=== PATIENT | female | born 2000 | race Caucasian/White ===

== ENCOUNTER 2024-04-23 08:52 | Outpatient (AMB) | payer OTHER, SELFPAY ==
--- NOTE | 2024-04-23 08:53 | AM.OFFWIN_ITS ---
Intake Vital Signs 04/23/24 08:54 Height 5 ft 4.5 in Weight 152 lb BMI 25.7 BP 102/68 Blood Pressure Location Rt brachial Position Right Lateral Pulse 70 Pulse Source Pulse Oximeter Temp 98.4 F Temp Source Oral Pulse Oximetry (%) 98 Oxygen Delivery Method Room Air Intake Visit Reasons: frequent urination Intake Note: pt c/o urinary frequency, chills, bladder pain. Started Patient Tobacco Use Status: Never used Tobacco Allergies No Known Allergies Allergy (Verified 04/23/24 08:53) Do you need a note to return to daycare/school/sports/work: No HPI frequent urination HPI Details This note is constructed using voice recognition software. While every effort has been made to ensure accuracy, french instructor errors may have been included. The patient is a 23 year old female who presents to the clinic today with concern for UTI. 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 The symptoms did start on and she did start increasing her hydration to try to flush the UTI through, however was unsuccessful. She reports that she knew that she had a UTI when she had to void 4 times within an hour, and she typically would only voids twice in a 12 hour shift. She has urgency, burning. She also notes that she is currently on her menses, so she does have some abdominal cramping that typically would be going along with the menses. She has no vaginal discharge other than her menstruation, no lesions, she is sexually active uses condoms. She has back pain, however also works out at the gym, and denies specifically flank pain. She denies fever. COUNT INCLUDES [facility] Social History Patient Tobacco Use Status: Never used Tobacco Review of Systems Const All systems reviewed & are unremarkable except as noted in HPI and below Physical Exam Vital Signs: Last Vital Signs Temp 98.4 F 04/23/24 08:54 Pulse 70 04/23/24 08:54 BP 102/68 04/23/24 08:54 Pulse Ox 98 04/23/24 08:54 Oxygen Delivery Method Room Air 04/23/24 08:54 BMI result Body Mass Index 25.7 Const General: cooperative, healthy appearing, comfortable, no acute distress and alert Orientation/consciousness: patient oriented x3 Limitations: no limitations Resp Effort & Inspection: normal respiratory effort and able to speak in complete sentences Auscultation: clear to auscultation bilaterally Cardio Jugular venous distension: no JVD Palpation: normal PMI Rate: regular rate Heart sounds: S1 normal heart sound present, S2 normal heart sound present, no click, no gallops, no murmurs and no rubs General: Yes no CVA tenderness Back/Spine/Pelvis Back: no CVA tenderness Skin General skin exam: no rashes or lesions noted, elasticity normal and turgor normal Neuro General: patient oriented x3 Psych Appearance: grossly normal Mental Status: mental status grossly normal Speech and movement: Normal speech and movement present Affect: normal affect Results AMB Urinalysis, Automated UA Leukoctes 500 Chacha/uL Last Edit by Kyaw James CMA on 04/23/24 09:20 UA Nitrite Negative Last Edit by Kyaw James CMA on 04/23/24 09:20 UA Urobilinogen 0.2 mg/dL Last Edit by Kyaw James CMA on 04/23/24 09:20 UA Protein 0 mg/dL Last Edit by Kyaw James CMA on 04/23/24 09:20 UA pH 6.5 Last Edit by Kyaw James CMA on 04/23/24 09:20 UA Blood 25 Stevie/uL Last Edit by Kyaw James CMA on 04/23/24 09:20 UA Specific [place] 1.010 Last Edit by Kyaw James CMA on 04/23/24 09:20 UA Ketone Negative Last Edit by Kyaw James CMA on 04/23/24 09:20 UA Bilirubin 0 mg/dL Last Edit by Kyaw James CMA on 04/23/24 09:20 UA Glucose 0 mg/dL Last Edit by Kyaw James CMA on 04/23/24 09:20 Assessment & Plan Assessment & Plan (1) UTI (urinary tract infection): Code(s): N39.0 - Urinary tract infection, site not specified Qualifiers: Urinary tract infection type: acute cystitis Hematuria presence: without hematuria Qualified Code(s): N30.00 - Acute cystitis without hematuria Plan: Advised to increase hydration, trial of [id number] azo for antispasmodic effects. Antimicrobial therapy Macrobid sent to requested pharmacy. Advised patient to take until complete. Advised patient to follow up with failure to resolve or worsening symptoms. Plan See above for full details and plan. Medications: New nitrofurantoin monohyd/m-cryst 100 mg (Macrobid) must administer with a meal/food 100 mg PO Q12H 3 days 6 caps 0RF Coding Level of Care Code Est Pt Level 3 (65867) Diagnoses Acute cystitis without hematuria N30.00 Urinary tract infection type: acute cystitis Hematuria presence: without hematuria
[2024-04-23 08:54] VITALS: BP 102/68; PULSE 70; TEMP 36.9; O2SAT 98; BMI 25.7
== END 2024-04-23 09:57 | disposition home or self-care (01) ==
PROVIDERS: Visit Provider Registered Nurse
DX: N30.00 Acute cystitis without hematuria (principal); Z13.9 Encounter for screening, unspecified
CPT/HCPCS: 81003; 99213

== ENCOUNTER 2024-08-03 10:06 | Outpatient (AMB) | payer OTHER, SELFPAY ==
--- NOTE | 2024-08-03 10:49 | AM.OFFWIN_ITS ---
Intake Vital Signs 08/03/24 10:50 Height 5 ft 4.5 in Weight 148 lb BMI 25.0 BP 120/80 Blood Pressure Location Rt brachial Position Sitting Pulse 64 Pulse Source Pulse Oximeter Pulse Oximetry (%) 98 Oxygen Delivery Method Room Air Intake Visit Reasons: EP Pelvic pain Intake Note: Patient here for pelvic pain and would like to have STD testing done since she has a new partner. Patient Tobacco Use Status: Never used Tobacco Allergies No Known Allergies Allergy (Verified 08/03/24 10:51) Do you need a note to return to daycare/school/sports/work: No HPI HPI Comments History of Present Illness Details This is a 24-year-old female who presented to the walk-in clinic complaining of mild pelvic pain for the past several days. Patient states she believes she is just getting her period; however, she is sexually active with a new partner for the past 3 months and she is requesting STD testing. She denies any vaginal discharge or vaginal bleeding. She denies any abdominal pain or nausea/vomiting/diarrhea. She denies any fevers or chills. She denies any dysuria, hematuria, urinary frequency, or urinary urgency. [facility] Social History Patient Tobacco Use Status: Never used Tobacco Review of Systems Const All systems reviewed & are unremarkable except as noted in HPI and below Reports no additional complaints Eyes Reports no additional complaints ENT Reports no additional complaints Card Reports no additional complaints Resp Reports no additional complaints GI Reports no additional complaints Reports no additional complaints Musc Reports no additional complaints Skin/Breast Reports system reviewed and no additional complaints, except as documented Neuro Reports no additional complaints Psych Reports no additional complaints Endo Reports no additional complaints Ezequiel/Lymph Reports no additional complaints Aller/Immun Reports no additional complaints Physical Exam Vital Signs: Last Vital Signs Pulse 64 08/03/24 10:50 BP 120/80 08/03/24 10:50 Pulse Ox 98 08/03/24 10:50 Oxygen Delivery Method Room Air 08/03/24 10:50 BMI result Body Mass Index 25.0 Const Other: Vital signs reviewed. Constitutional: Non-toxic appearing. No acute distress. Well-developed and well-nourished. HEENT: Normocephalic and atraumatic. Skin: Warm and dry. No rashes or lesions noted. Neck: Full and painless range of motion. No cervical lymphadenopathy. Cardio: Regular rate and rhythm. No murmurs, gallops, or rubs. No lower extremity edema. No JVD. Pulmonary: No respiratory distress. No accessory muscle usage. Clear to auscultation bilaterally without wheezing, crackles, or rhonchi. Gastrointestinal: Mild suprapubic tenderness to palpation but otherwise soft, nontender, and nondistended. Normoactive bowel sounds in all 4 quadrants. Genitourinary: No CVA tenderness. Musculoskeletal: Normal range of motion in joints throughout the body. No deformity or other signs of injury. Neuro: Alert and oriented x4. Cranial nerves 2-12 grossly intact. No focal deficits appreciated. Psych: Normal mood and affect. Assessment & Plan Assessment & Plan (1) Screen for sexually transmitted diseases: Code(s): Z11.3 - Encounter for screening for infections with a predominantly sexual mode of transmission Plan: This is a 24-year-old female who presented to the walk-in clinic complaining of mild pelvic pain. Patient states she believes she is getting her period; however, she is requesting STD testing as she has been sexually active with a new partner for the past 3 months. Her urine was sent for CT NG and bacterial vaginosis swab was sent. A urinalysis was obtained in office to rule out urinary tract infection, which was negative for leukocyte esterase or nitrites the patient does not appear to have a urinary tract infection. Hold off on empiric treatment given patient is relatively asymptomatic and does not have a known exposure. Patient will be called with the results and treated accordingly. Patient verbalized her understanding and she is in agreement with the plan. Orders: Orders CT NG by PCR Today R10.2 - Pelvic and perineal pain Bacterial Vaginosis Panel Today R10.2 - Pelvic and perineal pain Coding Level of Care Code Est Pt Level 3 (31705) Diagnoses Screen for sexually transmitted diseases Z11.3
[2024-08-03 10:50] VITALS: BP 120/80; PULSE 64; O2SAT 98; BMI 25.0
== END 2024-08-03 12:17 | disposition home or self-care (01) ==
PROVIDERS: Visit Provider Physician Assistant Medical
DX: Z13.9 Encounter for screening, unspecified (principal); Z32.02 Encounter for pregnancy test, result negative; Z11.3 Encounter for screening for infections with a predominantly sexual mode of transmission

== ENCOUNTER 2024-08-03 10:06 | Outpatient (REF) | payer OTHER, SELFPAY ==
[2024-08-03 17:57] LABS: Bacterial Vaginosis PCR POSITIVE (Negative); Candida Group PCR NOT DETECTED (Not Detect); Candida glab krusei PCR NOT DETECTED (Not Detect); Trichomonas vaginalis PCR NOT DETECTED (Not Detect)
[2024-08-03 18:14] LABS: CT PCR NOT DETECTED (Not Detect.); NG PCR NOT DETECTED (Not Detect.)
== END 2024-08-03 10:07 | disposition home or self-care (01) ==
LOC: HO.LAB 10:06
PROVIDERS: Visit Provider Physician Assistant Medical
DX: R10.2 Pelvic and perineal pain (principal)
CPT/HCPCS: 0352U; 81003; 81025; 87491; 87591

== ENCOUNTER 2025-07-18 12:31 | Outpatient (AMB) | payer OTHER, SELFPAY ==
--- NOTE | 2025-07-18 12:42 | A.OFFPC_ITS ---
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 EST CARE Allergies No Known Allergies Allergy (Verified 07/18/25 12:44) Medication List - Last Reconciled 07/18/25 by KAMRAN Melendez Tobacco use date assessed: 07/18/25 Dental Screening Dental Screen Date: 07/18/25 Did you have a dental visit in the last 12 months?: Yes Did you have a dental problem in the last 6 months where you did not have access to dental care?: No Was dental information given to patient?: Patient has dentist HPI HPI Comments History of Present Illness Details 25 y/o F chronic constipation, migraines 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 No records, coming from [place] Migraine Headaches: - Chronic, with episodes starting in ado lescence. - Symptoms include debilitating headache s, nausea, vomiting. - Treatments: OTC medications w/o relief . Chronic Constipation: - Present for over two years, negative c olonoscopy results. - Utilizes colon sweep for relief, not es dehydration exacerbates. Mild anxiety: - Generalized anxiety related to recent life changes. - Self-managed without pharmaceutical tr eatment. Family History - Mother: High blood pressure, heart dis ease, lung cancer. - Father: High blood pressure, heart dis ease, history of smoking and alcoholism. - Maternal Grandfather: Diabetes mellitu s (insulin-dependent), cancer. - Maternal Grandmother: Ovarian cancer, metastatic. - Paternal Grandfather: History of cance r (type unspecified). - Paternal Grandmother: No cancer histor y reported. 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 - No current tobacco use. - Previously used control (Nexplan on) but is currently not using any. - Plans to establish care with [employer] SUPERVISOR. - Reports infrequent alcohol use and no use of illicit substances. Health Maintenance - No recent flu vaccination received due to prior illness following vaccination. - Tetanus booster obtained recently - Last Pap smear completed approximately one year ago with negative results. - Colonoscopy performed in the past two years with negative findings for pathology. Review of Systems - Neurological: Reports recurrent migrai zuleika, denies seizures or fainting. - Gastrointestinal: Reports chronic cons tipation, denies abdominal pain or diarrhea. - Genitourinary: Denies current dysuria, reports past urinary tract infections. - Psychiatric: Reports generalized anxie ty, denies depression. Physical Exam General: Well developed, well nourished, in no acute distress. Appears stated age. Head: Normocephalic, atraumatic. Eyes: Pupils are equal, round and reactive to light and accommodation. Conjunctivae are clear. Scleras nonicteric bilat. Ears: TMs clear AU, EACS WNL Nose: Patent, without discharge. Neck: No carotid bruit bilat. Supple, no adenopathy or thyromegaly. Breast: Edu on SBE Lungs: Clear to auscultation bilaterally. No rales, rhonchi or wheeze noted. Good air flow in all prado. Heart: Regular rate and rhythm. No murmurs, click, rubs or gallops are noted. Abdomen: Bowel sounds present in all quadrants. The abdomen is soft, nontender, with no masses or organomegaly noted. No hernias are noted. : Deferred. 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 Pap smear negative, done about a year ago. Pulses: Peripheral pulses are equal and palpable bilaterally. Extremities: No clubbing, cyanosis nor edema is noted. Feet are okay, no open areas or sores. Neurologic: Gait and station normal. Cranial Nerves 2-12 intact. Motor strength grossly symmetrical and intact. No sensory loss. Balance normal. Hi Skin: No rashes, ulcers, or lesions noted. Turgor is good. Skin color is good. Hair and nails are without abnormalities. Psych: Normal eye contact, affect and mood appropriate, and normal interactions. Patient is alert and appropriate to context. Results Pending Discussion Notes During the consultation, we discussed the management of patient's chronic migraines and chronic constipation. I recommended initiating a preventative regimen with magnesium oxide and riboflavin to reduce migraine frequency and severity. We discussed its benefits in decreasing chronic migraine episodes and potential side effects. The patient was advised to attempt increased hydration and continue using the colon sweep for constipation relief. We reviewed the possibility of referral to a GI specialist and established a plan for obtaining additional medication if needed. The plan for health maintenance includes regular follow-ups, addressing potential cervical cancer screenings, and managing anxiety informally. The patient was encouraged to hydrate more adequately to support gastrointestinal and overall health. Consent was obtained for suggested interventions following a detailed discussion of their risks and benefits. Arrangements for referrals to [employer]PER[employer] at [facility] were initiated due to the patient?s previous lack of a routine women?s health provider. Patient was given time to ask questions. All questions were answered to their satisfaction. Assessment and Plan 1. Migraine Headaches - Magnesium oxide 400 mg and riboflavin 400 mg at bedtime. - Review symptoms in three months. Use e xcedrin as abortive for now. 2. Chronic Constipation - Continue colon sweep use. - Increase hydration. - [place] [facility] [place] 3. Screening labs today. Patient Instructions - Take magnesium and riboflavin nightly as discussed. - Drink more water each day to help redu ce constipation. - Keep using colon sweep if it helps. - Report any new symptoms or if headache s get worse. - Come back in three months for a follow -up. - Sign up for the patient portal using e mail link for easy communication. - RTO 3 mo to fu on migraine mgmt, soone r PRN Consent Patient was informed and verbally consented to the use of an ambient scribe for clinic note documentation during this visit. An additional 30 minutes was spent addressing the problem(s) noted at todays visit. This includes time spent before the visit reviewing the chart, time spent during the visit, and time spent after the visit on documentation reviewing laboratory results, diagnostic imaging, medications, performing a medically necessary evaluation, counseling on diagnoses, care coordination, ordering appropriate tests, ordering appropriate medications, review of tests performed by other providers, reporting test results with the patient, communication with other healthcare providers. [facility] Social History Patient Tobacco Use Status: Never used Tobacco Questionnaire PHQ-9 Over the last 2 weeks, how often have you been bothered by any of the following problems? 1. Little interest or pleasure in doing things: not at all 2. Feeling down, depressed, or hopeless: not at all 3. Trouble falling or staying asleep, or sleeping too much: not at all 4. Feeling tired or having little energy: not at all 5. Poor appetite or overeating: not at all 6. Feeling bad about yourself - or that you are a failure or have let yourself or your family down: not at all 7. Trouble concentrating on things, such as reading the newspaper or watching television: not at all 8. Moving or speaking so slowly that other people could have noticed. Or the opposite - being so fidgety or restless that you have been moving around a lot more than usual: not at all 9. Thoughts that you would be better off or of hurting yourself in some way: not at all Total score: 0 Depression Screening Interpretation: Negative Depression Screening Done: Yes 12447 - PHQ-9 Billing: Yes Source: Developed by Drs. Cliff Marquis, Ileana Ruano, Fede Vasquez and colleagues, with an educational gilma from [employer]. Thrive Questionnaire Date Thrive assessed: 07/18/25 I am a: Patient What is your living situation today?: I have a steady place to live Within the past 12 months, did the food you bought not last and you didn't have the money to get more?: Never true Within the past 12 months, did you worry whether your food would run out before you got money to buy more?: Never true Do you have trouble paying for medicines?: No Do you have trouble getting transportation to medical appointments?: No Do you have trouble paying your heating and electricity bill?: No Do you have trouble taking care of your child, family member or friend?: No Do you have trouble with day-to-day activities such as bathing, preparing meals, shopping, managing finances, etc.?: No Are you currently unemployed and looking for a job?: No Are you interested in more education?: No Please select the resources that you would like help with: None Currently or been in a relationship where the following occur: No concerns reported THRIVE Score: 0 AUDIT C Alcohol Use Questionnaire (AUDIT-C) 1. How often do you have a drink containing alcohol?: 2-4 times a month 2. How many drinks containing alcohol do you have on a typical day when you are drinking?: 1 or 2 3. How often do you have six or more drinks on one occasion?: Never Total Score: 2 Score Reviewed/Action Taken: Yes ABHILASH-7 AMB Questionnaire ABHILASH-7 Date ABHILASH - 7 assessed: 07/18/25 Feeling nervous, anxious, or on edge: 1 = Several days Not being able to stop or control worryin = Several days Worrying too much about different things: 1 = Several days Trouble relaxin = Several days Being so restless that it is hard to sit still: 0 = Not at all Becoming easily annoyed or irritable: 0 = Not at all Feeling afraid as if something awful might happen: 0 = Not at all Total ABHILASH-7 score (0-4 normal; 5-9 mild; 10-14 moderate; 15-21 severe): 4 Source: Developed by Drs. Cliff Marquis, Ileana Ruano, Fede Vasquez and colleagues, with an educational gilma from [employer]. ABHILASH-7 Assessment Billing ABHILASH-7 Assessment Tool: ABHILASH-7 Assessment 59050 Physical exam (Primary Care) Vital Signs: Last Vital Signs Pulse 64 07/18/25 12:43 Resp 18 07/18/25 12:43 BP 110/64 07/18/25 12:43 Pulse Ox 100 07/18/25 12:43 Oxygen Delivery Method Room Air 07/18/25 12:43 BMI result Body Mass Index 25.2 Tobacco/Smoking Status: Tobacco use Status Patient Tobacco Use Status Never used Tobacco 07/18/25 12:45 PHQ-9: PHQ-9 Score PHQ-9: Total score 0 07/18/25 12:52 Depression Screening Interpretation: Negative Thrive Assessment: Date of Thrive Assessment Date Thrive assessed 07/18/25 07/18/25 12:52 Currently or been in a relationship where the following occur: No concerns reported Coding Level of Care Code New Pt Level 3 (75889) New Pt Prev Care 18-39yr(28220 Diagnoses Encounter to establish care Z76.89 Influenza vaccination declined Z28.21 Up to date with tetanus vaccination Family history of lung cancer Z80.1 Family history of ovarian cancer Z80.41 Family history of diabetes mellitus Z83.3 Chronic constipation K59.09 Laboratory exam ordered as part of routine general medical examination Z00.00 Migraine without aura and without status migrainosus, not intractable G43.009 Status migrainosus presence: without status migrainosus Intractability: not intractable History of Papanicolaou smear of cervix Z92.89 History of colonoscopy Z98.890 Encounter for general adult medical examination without abnormal findings Z00.00 Additional Codes PHQ-9 - 42556 - PHQ-9 Billing: Yes ([id number]) ABHILASH-7 Assessment Billing - ABHILASH-7 Assessment Tool: ABHILASH-7 Assessment 77113 ([id number]) Assessment & Plan Assessment & Plan (1) Encounter to establish care: Code(s): Z76.89 - Persons encountering health services in other specified circumstances (2) Influenza vaccination declined: Onset Date: ~07/18/25 Code(s): Z28.21 - Immunization not carried out because of patient refusal Category: Medical (3) Up to date with tetanus vaccination: Category: Medical (4) Family history of lung cancer: Comment: Mom ([employer] smart) Code(s): Z80.1 - Family history of malignant neoplasm of trachea, bronchus and lung Category: Medical (5) [place] of [place] [facility](s): Z80.41 - Family history of malignant neoplasm of ovary Category: Medical (6) Family history of diabetes mellitus: Comment: [facility] [place] Code(s): Z83.3 - Family history of diabetes mellitus Category: Medical (7) Chronic constipation: Code(s): K59.09 - Other constipation Category: Medical (8) Laboratory exam ordered as part of routine general medical examination: Code(s): Z00.00 - Encounter for general adult medical examination without abnormal findings Category: Medical (9) Migraine without aura: Code(s): G43.009 - Migraine without aura, not intractable, without status migrainosus Category: Medical Qualifiers: Status migrainosus presence: without status migrainosus Intractability: not intractable Qualified Code(s): G43.009 - Migraine without aura, not intractable, without status migrainosus (10) History of Papanicolaou smear of cervix: Onset Date: ~2023 Code(s): Z92.89 - Personal history of other medical treatment Category: Medical (11) History of colonoscopy: Onset Date: ~2022 Code(s): Z98.890 - Other specified postprocedural states Category: Surgical (12) Encounter for general adult medical examination without abnormal findings: Onset Date: ~07/18/25 Code(s): Z00.00 - Encounter for general adult medical examination without abnormal findings Category: Medical Plan . Orders: Orders Hemoglobin A1c Today Z00.00 - Encounter for general adult medical examination without abnormal findings, Z11.3 - Encounter for screening for infections with a predominantly sexual mode of transmission UA CC w/rflx Micro + Cult Today R30.0 - Dysuria, Z00.00 - Encounter for general adult medical examination without abnormal findings, Z11.3 - Encounter for screening for infections with a predominantly sexual mode of transmission CT NG by PCR Urine Today Z00.00 - Encounter for general adult medical examination without abnormal findings, Z11.3 - Encounter for screening for infections with a predominantly sexual mode of transmission Complete Blood Count no Diff Today Z00.00 - Encounter for general adult medical examination without abnormal findings, Z11.3 - Encounter for screening for infections with a predominantly sexual mode of transmission Comprehensive Met. Panel Today Z00.00 - Encounter for general adult medical examination without abnormal findings, Z11.3 - Encounter for screening for infections with a predominantly sexual mode of transmission Lipid Panel Today Z00.00 - Encounter for general adult medical examination without abnormal findings, Z11.3 - Encounter for screening for infections with a predominantly sexual mode of transmission Microalbumin, Random (w Creat) Today Z00.00 - Encounter for general adult medical examination without abnormal findings, Z11.3 - Encounter for screening for infections with a predominantly sexual mode of transmission TSH reflex Free T4 Today Z00.00 - Encounter for general adult medical examination without abnormal findings, Z11.3 - Encounter for screening for infections with a predominantly sexual mode of transmission Vitamin B12 and Folate Today Z00.00 - Encounter for general adult medical examination without abnormal findings, Z11.3 - Encounter for screening for infections with a predominantly sexual mode of transmission Vitamin D 25-OH Total Today Z00.00 - Encounter for general adult medical examination without abnormal findings, Z11.3 - Encounter for screening for infections with a predominantly sexual mode of transmission HIV Ab/Ag Today Z00.00 - Encounter for general adult medical examination without abnormal findings, Z11.3 - Encounter for screening for infections with a predominantly sexual mode of transmission Syphilis Screen Today Z00.00 - Encounter for general adult medical examination without abnormal findings, Z11.3 - Encounter for screening for infections with a predominantly sexual mode of transmission Referrals [employer] SUPERVISOR Referral Z12.4 - Encounter for screening for malignant neoplasm of cervix Gastroenterology Referral K59.09 - Other constipation Medications: New magnesium oxide 400 mg PO BEDTIME 90 caps 2RF riboflavin (vitamin B2) 400 mg PO BEDTIME 90 tabs 2RF Patient Instructions: Walk-In Care (Urgent Care): We Make it Easy Walk-in for urgent medical issues such as: ? Seasonal Allergies ? Insect Bites ? Cough ? Diarrhea ? Acute Asthma Attacks ? Back, Knee or Joint Pain ? Ear Infection ? Fever without a Rash ? Headaches ? Nausea ? Colp Eye, Rash or Skin Irritation ? Sore Throat ? Sports Physicals ? Vomiting Most insurances are accepted. Patients do not need to be part of the [facility] to seek care at the walk-in clinic. Locations [address] [place] [address] Open Tuesday through Tuesday 8am-5pm *Hours may vary due to staffing availability. To confirm Walk-In Care hours please call. [facility] , [place] [address] ? [phone] [facility] in [place] provides services to ages 18 and over. Open Tuesday-Tuesday: 7 a.m. to 5 p.m. and Tuesday: 9 a.m. to 3 p.m.* *Hours may vary due to staffing availability. To confirm Walk-In Care hours in [place], please call [phone]. [address] [place] [address] ? [phone] [facility] in [place] provides services to ages 12 and over. Open Tuesday-Tuesday: 8 a.m. to 5 p.m. Hours may vary due to staffing availability. To confirm Walk-In Care hours in [place], please call [phone]. LABORATORY SERVICES: [facility] ? Primary Location [address] [place] [address] Tuesday through Tuesday 6:00 AM ? 5:00 PM Tuesday 7:00 AM ? 11:00 AM* [phone] The [facility] is centrally located near the front entrance of the Medical Center for easy outpatient access. Convenient parking is provided for outpatients. *Hours may vary due to staffing availability. To confirm Laboratory hours for any location, please call [phone]. Offsite Location For your convenience, we offer offsite laboratory draw stations at the following locations: [address], [place] ? [facility] [address], [address], [place] Tuesday through Tuesday 7:30 AM ? 1:00 PM* [phone] *Hours may vary due to staffing availability. To confirm Laboratory hours for any location, please call [phone]. [place] ? [facility] [address] [facility] Tuesday through Tuesday 6:00 AM ? 3:30 PM* Tuesday 6:30 AM ? 3 PM* [phone] *Hours may vary due to staffing availability. To confirm Laboratory hours for any location, please call [phone] [place] [address] Tuesday through Tuesday 7:30 AM ? 4:00 PM* [phone] *Hours may vary due to staffing availability. To confirm Laboratory hours for any location, please call [phone] [place] [address] Tuesday through 9:00 AM ? 4:00 PM* *Hours may vary due to staffing availability. To confirm Laboratory hours for any location, please call [phone]. Appointments are not necessary. Walk-ins are welcome. Like all the departments throughout the [facility], our Lab undergoes frequent reviews to ensure the quality and accuracy of test results, and our [facility] takes special pride in its status as a nationally accredited facility. Patient Portal: [facility] ONE PATIENT. ONE RECORD. BETTER CARE. [facility] has a fully integrated, cutting- edge mobile electronic health information system that has revolutionized the way we care for our patients and manage our organization. This system improves communication and coordination enabling us to provide safe, higher-quality care, and an overall positive experience for staff and patients. Our first priority, as always, is to deliver the highest quality care possible. The system is running in the background supporting that priority. This portal is for all [facility] services and practices. If you are experiencing any technical difficulties with enrolling or logging into the Patient Portal please complete the [facility] Patient Portal Technical Support Form. [facility] now offers a new secure on-line interactive tool for patients to review their health information ? ?Patient Portal. This interactive web portal will enable patients and their families to take an active role in their care by providing easy, secure access to their health information via the internet. The Patient Portal provides patients with instant access to their health information, including laboratory results, medications, allergies, demographic information, visit history, and more. In addition to managing their own care, parents and health care proxies with authorized consent will appreciate the ability to access the records of those individuals for whom they provide care. Please note: if you wish to gain access (Proxy) to another patient?s portal, you will be required to come to the Medical Records Department in person at [facility]. Both the patient giving proxy access and the proxy will need to provide photo identification and complete the appropriate authorization. The Patient Portal also allows track their appointments online. The [facility] Patient Portal also saves patients time by allowing them to submit updates to their demographic and contact information prior to their visits. Portal email notifications will also alert patients to any new activity on their portal, such as test results and new appointments. In order to initially enroll in the [facility] Patient Portal, you will need to enter some required information including the following: * your [facility] Medical Record number * your personal home email address * name * date of Please note: In order to enroll in the [facility] Patient Portal, we need to have your email address on file in your electronic medical record. ?The email address needs to be specific for one person (yourself) in order for your Portal enrollm ent to be successful. ?You can update your email address in person with our Registration staff when you are registering for a hospital visit. ?Otherwise, you will need to come to the Health Information Management (Medical Records) Department at [facility]. ?We are open from Tuesday ? Tuesday from 7:30 a.m. ? 4:30 p.m. ?You will be required to present a photo id. Once you have successfully enrolled in the Patient Portal, you will receive a one-time user id and password for the Portal, sent to your email address. ?This will allow you to log into the Patient Portal within 99 hrs and reset your own logon id and password, and define personal security questions. ?Once your permanent login and password have been set, you can log into the [facility] Patient Portal at any time via the blue button above or from the Portal Logon button on any page of the [facility] website. [facility] and [facility] encourage all of our patients to enroll in Patient Portal as it presents a valuable opportunity for patients and their families to actively participate in their care and stay healthy Welcome to [facility]. ?We look forward to working with you. Health screenings for women You should visit your health care provider from time to time, even if you are healthy. The purpose of these visits is to: Screen for medical issues Assess your risk for future medical problems Encourage a healthy lifestyle Update vaccinations and other preventive care services Help you get to know your provider in case of an illness Information Even if you feel fine, you should still see your provider for regular checkups. These visits can help you avoid problems in the future. For example, the only way to find out if you have high blood pressure is to have it checked regularly. High blood sugar and high cholesterol levels also may not have any symptoms in the early stages. A simple blood test can check for these conditions. There are specific times when you should see your provider or receive specific health screenings. The [place] Preventive Services Task Force publishes a list of recommended screenings. Below are screening guidelines for women ages 18 to 39. BLOOD PRESSURE SCREENING Your blood pressure should be checked at least once every 3 to 5 years if: Your blood pressure is in the normal range (top number less than 120 mm Hg and bottom number less than 80 mm Hg) You don't have risk factors for high blood pressure Ask your provider if you need your blood pressure checked more often if: The top number is 120 to 129 mm Hg or the bottom number is 70 to 79 mm Hg You have diabetes, heart disease, kidney problems, are overweight, or have certain other health conditions You have a first-degree relative with high blood pressure You are Black You had high blood pressure during a If the top number is 130 mm Hg or greater or the bottom number is 80 mm Hg or greater, this is considered stage 1 hypertension. Schedule an appointment with your provider to learn how you can reduce your blood pressure. Watch for blood pressure screenings in your area. Ask your provider if you can stop in to have your blood pressure checked. BREAST CANCER SCREENING Experts do not agree about the benefits of breast self-exams in finding breast cancer or saving lives. Talk to your provider about what is best for you. A screening mammogram is not recommended for most women under age 40. Your provider may discuss and recommend mammograms, MRI scans, or ultrasounds if you have an increased risk for breast cancer, such as: A mother or sister who had breast cancer at a young age (most often starting screening earlier than the age the close relative was diagnosed) You carry a high-risk genetic marker CERVICAL CANCER SCREENING Cervical cancer screening should start at age 21 years unless your provider advises otherwise. After the first test: Women ages 21 through 29 should have a Pap test every 3 years. Exoprts do not ag ree on whether HPV testing is recommended for this age group. Women ages 30 through 65 should be screened with either a Pap test every 3 years or the HPV test every 5 years or both tests every 5 years (called cotesting ). Women who have been treated for precancer (cervical dysplasia) should continue to have Pap tests for 20 years after treatment or until age 65, whichever is longer. If you have had your uterus and cervix removed (total hysterectomy), and you have not been diagnosed with cervical cancer or precancer (high grade cervical neoplasia), you do not need cervical cancer screening. CHOLESTEROL SCREENING Cholesterol screening should begin at: Age 45 for women with no known risk factors for coronary heart disease Age 20 for women with known risk factors for coronary heart disease Repeat cholesterol screening should take place: Every 5 years for women with normal cholesterol levels More often if changes occur in lifestyle (including weight gain and diet) More often if you have diabetes, heart disease, kidney problems, or certain other conditions DIABETES SCREENING You should be screened for diabetes starting at age 35 and then repeated every 3 years if you have no risk factors for diabetes. Screening may need to start earlier and be repeated more often if you have other risk factors for diabetes, such as: You have a first degree relative with diabetes. You are overweight or have obesity. You have high blood pressure, prediabetes, or a history of heart disease. Screening for diabetes should be done if you are planning to become and you are overweight and have other risk factors such as high blood pressure. DENTAL EXAM Go to the dentist once or twice every year for an exam and cleaning. Your dentist will evaluate if you need more frequent visits. EYE EXAM Have an eye exam every 5 to 10 years before age 40. If you have vision problems, have an eye exam every 2 years or more often if recommended by your provider. You should have an eye exam that includes an examination of your retina (back of your eye) at least every year if you have diabetes. IMMUNIZATIONS Commonly needed vaccines include: Flu shot: get one every year. COVID-19 vaccine: ask your provider what is best for you. Tetanus-diphtheria and acellular pertussis (Tdap) vaccine: have one at or after age 19 as one of your tetanus-diphtheria vaccines if you did not receive it as an adolescent. Tetanus-diphtheria: have a booster (or Tdap) every 10 years. Varicella vaccine: receive 2 doses if you never had chickenpox or the varicella vaccine. Hepatitis B vaccine: receive 2, 3, or 4 doses, depending on your exact circumstances. Measles, mumps, and rubella (MMR) vaccine: receive 1 to 2 doses if you are not already immune to MMR. Your provider can tell you if you are immune. Ask your provider about the human papillomavirus (HPV) vaccine if: You have not received the HPV vaccine in the past You have not completed the full vaccine series (you should catch up on this shot) Ask your provider if you should receive other immunizations if you have certain health problems that increase your risk for some diseases such as pneumonia. INFECTIOUS DISEASE SCREENING Women who are sexually active should be screened for chlamydia and gonorrhea up until age 25. Women 25 years and older should be screened for chlamydia and gonorrhea if at high risk. Screening for hepatitis C: All adults ages 18 to 79 should get a one-time test for hepatitis C. people should be screened at every . Screening for human immunodeficiency virus (HIV): All people ages 15 to 65 should get a one-time test for HIV. Depending on your lifestyle and medical history, you may also need to be screened for infections such as syphilis and HIV, as well as other infections. PHYSICAL EXAM All adults should visit their provider from time to time, even if they are healthy. The purpose of these visits is to: Screen for disease Assess your risk of future medical problems Encourage a healthy lifestyle Update your vaccinations and other preventive care services Maintain a relationship with a provider in case of an illness Your height, weight, and BMI should be checked at every exam. During your exam, your provider may ask you about: Depression and anxiety Diet and exercise Alcohol and tobacco use Safety issues, such as using seat belts, smoke detectors, and intimate partner violence Your medicines and risk for interactions SKIN SELF-EXAM Your provider may check your skin for signs of skin cancer, especially if you're at high risk, such as if you: Have had skin cancer before Have close relatives with skin cancer Have a weakened immune system OTHER SCREENING Talk with your provider about colon cancer screening if you have a strong family history of colon cancer or polyps, or if you have had inflammatory bowel disease or polyps yourself. Routine bone density screening of women under 40 is not recommended.
[2025-07-18 12:43] VITALS: BP 110/64; PULSE 64; RESP 18; O2SAT 100; BMI 25.2
--- OUTSIDE RECORDS SUMMARY | 2025-07-18 15:39 | XMS_ITS | Clinical Summary ---
Author Organization Patient Business Ser [facility] Address [address] [place] [address] Care Team Providers Care Campaign Marketing Manager Name Role Phone Pearl Billingsley MD Primary Care Pr ovider Allergies No known active allergies Medications bisacodyL (Dulcolax, bisacodyl,) 5 mg EC tablet Take 2 tabs at 6pm as directed. 3 Active etonogestrel-eluti ng contraceptive device (Nexplanon) 68 mg implant subdermal implant Inject into the skin. 2 Active Immunizations Immunization Administration Dates Next Due Influenza Quadravalent, MDCK , 0.5ml, preservative free (Flucelvax) 6mo and older 06/10/2022 Family History Medical History Relation Name Comments Heart attack Father Hypertension Father Colon cancer Maternal Grandmother Hypertension Mother Sleep apnea Mother Breast cancer Neg Hx Relation Name Status Comments Father Maternal Grandmother Mother Social History Tobacco Use Types Packs/Day Years Used Date Smoking Tobacco: Never Smokeless Tobacco: Never Alcohol Use Standard Drinks/Week Comments Not Asked 0 (1 standard drink = 0.6 oz pur e alcohol) Comments Unknown Sex and Gender Information Value Date Recorded Sex Assigned at Female 08/30/2024 9:51 AM EST Legal Sex Female 7:58 PM EDT Gender Identity Female 08/30/2024 9:51 AM EST Sexual Orientation Not on file Obstetrics History Last Filed Vital Signs Vital Sign Reading Time Taken Comments Blood Pressure 92/60 09/06/2022 1:02 PM EST Sitting L Arm Pulse 68 09/06/2022 1:02 PM EST Temperature - - Respiratory Rate - - Oxygen Saturation - - Inhaled Oxygen Concentration - - Weight 75.1 kg (165 lb 9.6 oz) 09/06/2022 1:02 PM EST Height 157.5 cm (5' 2 ) 09/06/2022 1:02 PM EST Body Mass Index 30.29 09/06/2022 1:02 PM EST Plan of Treatment Upcoming Encounters Date Type Department Care Team (Late st Contact Info) Description 07/26/2025 8:00 AM EDT Office Visit Adult Medicine [facility] [address] [place] [address] Pearl Billingsley MD [address], [place] Health Maintenance Due Date Last Done Comments DTaP,Tdap,and Td Vaccines (1 - Tdap) 2017 Hepatitis B Vaccines (1 of 3 - 19+ 3-dose series) 2017 Cervical Cancer Screening: P ap Smear 2019 HIV Screening 06/20/2022 Social Influencers of Health Screening 06/20/2022 Depression Screening 09/26/2024 COVID-19 Vaccine (1 - 2023-2 5 season) 2025 HPV Vaccines (1 - 3-dose SCD M series) 2025 Influenza Vaccine (#1) 2025 06/10/2022 Cholesterol Screening (Lipid Panel) 06/18/2027 06/18/2022 Colorectal Cancer Screening: Colonoscopy 10/28/2027 RSV Immunization Adult Patie nts (1 - 1-dose 75+ series) 2073 Hepatitis C Screening Completed 06/18/2022 Gonorrhea/Chlamydia Screening Discontinued 06/21/2022 HIB Vaccines Aged Out No longer eligi ble based on patient's age to complete this topic Hepatitis A Vaccines Aged Out No long er eligible based on patient's age to complete this topic IPV Vaccines Aged Out No longer eligi ble based on patient's age to complete this topic MMR Vaccines Aged Out No longer eligi ble based on patient's age to complete this topic Meningococcal ACWY Vaccine Aged Out N o longer eligible based on patient's age to complete this topic Meningococcal B Vaccine Aged Out No l onger eligible based on patient's age to complete this topic Pneumococcal Vaccine: Pediat rics (0 to 5 Years) and At-Risk Patients (6 to 49 Years) Aged Out No longer eligi ble based on patient's age to complete this topic RSV Immunization Patients Un aiden 20 months Aged Out No longer eligible b ased on patient's age to complete this topic Varicella Vaccines Aged Out No longer eligible based on patient's age to complete this topic Procedures Procedure Name Priority Date/Time Associated Diagnosis Comments GONORRHEA/CHLAMYDIA SCRREENING Routine 06/21/2022 HEPATITIS C SCREENING Routine 06/18/2022 LIPID PANEL Routine 06/18/2022 from Last 3 Months or Most Recently Relevant to Health Maintenance Results * Gonorrhea/Chlamydia Screening (06/21/2022) Gonorrhea/Chla mydia Screening abstracted [facility] Provider MD HEALTH MAINTENANCE Final Result * Hepatitis C Screening (06/18/2022) Hepatitis C Screening abstracted [facility] Provider MD HEALTH MAINTENANCE Final Result * (ABNORMAL) Lipid panel (06/18/2022) LDL/HDL Ratio 4 0 - 4 Triglycerides 101 0 - 150 mg/dL Cholesterol 155 0 - 200 mg/dL HDL 38(A) >=40 mg/dL LDL Cholesterol 97 0 - 100 mg/dL Blood Venous blood specimen / Unknown [facility] Provider LAB BLOOD ORDERABLES Vandana l Result from Last 3 Months or Most Recently Relevant to Health Maintenance Insurance [facility] Care Teams Campaign Marketing Manager Relationship Specialty Start Date End Date Pearl Billingsley MD [address] [facility] [place] [address] PCP - General Internal Medicine 04/20/22
== END 2025-07-18 13:05 | disposition home or self-care (01) ==
LOC: HO.HMCFM 12:32
PROVIDERS: PCP Nurse Practitioner Family; Visit Provider Nurse Practitioner Family
DX: Z00.00 Encounter for general adult medical examination without abnormal findings (principal); G43.009 Migraine without aura, not intractable, without status migrainosus; K59.09 Other constipation; Z28.21 Immunization not carried out because of patient refusal; Z80.1 Family history of malignant neoplasm of trachea, bronchus and lung; Z80.41 Family history of malignant neoplasm of ovary; Z83.3 Family history of diabetes mellitus; Z92.89 Personal history of other medical treatment; Z98.890 Other specified postprocedural states

== ENCOUNTER 2025-07-18 12:31 | Outpatient (REF) | payer OTHER, SELFPAY ==
[2025-07-18 18:03] LABS: Hematocrit 39.9 % (37.0-47.0); Hemoglobin 13.6 g/dl (12.0-16.0); Mean Corpuscular HGB Conc 34.1 g/dl (31.0-35.0); Mean Corpuscular Hemoglobin 30.0 pg (27.0-33.0); Mean Corpuscular Volume 88.1 fL (80.0-98.0); NRBC Abs Auto 0.000 X10*3/uL (0.0-0.012); NRBC Pct Auto 0.0 /100WBC (0.0-0.2); Platelet Count 337 X10*3/uL (160-400); Red Blood Count 4.53 X10*6/uL (4.20-5.50); White Blood Count 9.2 X10*3/uL (4.8-10.8)
[2025-07-18 18:33] LABS: Alanine Aminotransferase 94 U/L (0-31); Albumin Level 4.7 g/dL (3.5-5.0); Alkaline Phosphatase 76 U/L (39-117); Anion Gap 14 (12-20); Aspartate Amino Transferase 53 U/L (5-31); Blood Urea Nitrogen 7 mg/dL (9-16); Calcium 9.7 mg/dL (8.4-10.2); Carbon Dioxide 24 mmol/L (22-29); Chloride 105 mmol/L (96-108); Cholesterol 140 mg/dL (<200); Estimated Glomerular Filt Rate > 60; HDL Cholesterol 43 mg/dL (>40); Potassium 3.9 mmol/L (3.3-5.1); Sodium 139 mmol/L (135-145); Total Protein 7.8 g/dL (6.5-8.0); Triglycerides 67 mg/dL (<150)
[2025-07-18 18:38] LABS: Appearance Urine Clear; Glucose Urine UA Negative (Negative); PH 5.5 (5.0-9.0); Specific Gravity - Urine 1.010 (1.005-1.025); UMIC TRIGGER UACC YES
[2025-07-18 18:49] LABS: Folate 5.6 ng/mL (> or = 4.0); Vitamin B12 445 pg/mL (200-900)
[2025-07-19 04:03] LABS: Syphilis Screen Nonreactive (Nonreactive)
[2025-07-19 04:47] LABS: HIV Num 1 0.10 S/CO (0.00-0.99)
[2025-07-19 05:38] LABS: CT PCR Urine NOT DETECTED (Not Detect.); NG PCR Urine NOT DETECTED (Not Detect.)
== END 2025-07-18 12:32 | disposition home or self-care (01) ==
LOC: HO.WFDLDS 12:31
PROVIDERS: Visit Provider Nurse Practitioner Family
DX: Z00.00 Encounter for general adult medical examination without abnormal findings (principal); G43.909 Migraine, unspecified, not intractable, without status migrainosus; K59.09 Other constipation; F41.9 Anxiety disorder, unspecified; G43.009 Migraine without aura, not intractable, without status migrainosus; R30.0 Dysuria; Z13.1 Encounter for screening for diabetes mellitus; Z20.2 Contact with and (suspected) exposure to infections with a predominantly sexual mode of transmission; Z76.89 Persons encountering health services in other specified circumstances; Z28.21 Immunization not carried out because of patient refusal; Z80.1 Family history of malignant neoplasm of trachea, bronchus and lung; Z80.41 Family history of malignant neoplasm of ovary; Z83.3 Family history of diabetes mellitus; Z92.89 Personal history of other medical treatment; Z98.890 Other specified postprocedural states
CPT/HCPCS: 80053; 80061; 81001; 82306; 82570; 82607; 82746; 83036; 84443; 85027; 86780; 87389; 87491; 87591; 96127